=== PATIENT | female | born 1965 | race African-American/Black ===

== ENCOUNTER 2025-10-18 14:38 | Outpatient (AMB) | payer OTHER, SELFPAY ==
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
[2025-10-18 14:48] VITALS: BP 122/80; PULSE 63; RESP 16; TEMP 36.2; O2SAT 97; BMI 32.4
--- OUTSIDE RECORDS SUMMARY | 2025-10-18 16:03 | XMS_ITS | Clinical Summary ---
Author Organization [facility] Prior to 03/30/[address] [place] [address] Care Team Providers Care Blocker Metal Base Name Role Phone Suni Ojeda MD Primary Care Provider [phone]- [phone] Allergies Active Allergy Reactions Criticality Noted Date Comments Ceftriaxone 03/04/2024 Other reaction(s): BRADYCARDIA, CHEST PAIN Morphine 03/04/2024 Other reaction(s): Chest tightness Medications Medication Sig Dispensed Refills Start Date End Date Status ondansetron (ZOFRAN-ODT) 8 MG disintegrating tablet Take 1 tablet (8 mg total) by mouth every 8 (eight) hours as needed for nausea. 20 tablet 0 03/04/2024 Active Melatonin 10 MG TABS Take 10 mg by mouth every evening as needed. 0 02/09/2024 Active meclizine (ANTIVERT) 25 MG tablet Take 1 tablet (25 mg total) by mouth 3 (three) times a day as needed for dizziness. 30 tablet 0 03/05/2024 Active Active Problems Problem Noted Date Diagnosed Date Syncope and collapse 03/04/2024 Syncope 03/04/2024 Social History Tobacco Use Types Packs/Day Years Used Date Smoking Tobacco: Never Smokeless Tobacco: Never Alcohol Use Standard Drinks/Week Comments No 0 (1 standard drink = 0.6 oz pur e alcohol) Sex and Gender Information Value Date Recorded Sex Assigned at Female 03/04/2024 4:14 AM EDT Gender Identity Not on file Sexual Orientation Not on file Job Start Date Occupation Industry Not on file Not on file Not on file Last Filed Vital Signs Vital Sign Reading Time Taken Comments Blood Pressure 118/57 03/05/2024 10:51 AM EDT Pulse 60 03/05/2024 10:51 AM EDT Temperature 36.7 C (98.1 F) 03/05/2024 10:51 AM EDT Respiratory Rate 18 03/05/2024 10:51 AM EDT Oxygen Saturation 98% 03/05/2024 10:51 AM EDT Inhaled Oxygen Concentration - - Weight 97.1 kg (214 lb) 03/04/2024 4:17 AM EDT Height 157.5 cm (5' 2 ) 03/04/2024 4:17 AM EDT Body Mass Index 39.14 03/04/2024 4:17 AM EDT Plan of Treatment Health Maintenance Due Date Last Done Comments Hepatitis C Screening 1965 COVID-19 Vaccine (#1) 06/09/1964 Depression Screening 1975 Preventative Health Evaluation 1981 DTap / Tdap / Td (1 - Tdap) 1982 Cervical Cancer Screening (Pap Smear) 1984 Colon Cancer Screening (Colonoscopy) 2008 Breast Cancer Screening (Mammogram) 2013 Shingrix-Zoster Vaccine (1 o f 2) 2013 Influenza Vaccine (#1) 2025 3, 10/22/2016 RSV Adult > 60+ Yrs or (1 - 1-dose 75+ series) 2038 Hepatitis B Vaccines Completed 06/16/2004, 12/30/2003, 11/29/2003 Pneumococcal Vaccine Aged Out No long er eligible based on patient's age to complete this topic RSV Ped < 20 months Aged Out No longe r eligible based on patient's age to complete this topic Advance Directives For more information, please contact: [phone] Latest Code Status on File Code Status Date Activated Date Inactivated Comments Full Code 03/04/2024 10:52 AM 03/05/2024 5:29 PM This c ode status was ascertained in the following way: discussion with patient . Care Teams Blocker Metal Base Relationship Specialty Start Date End Date Suni Ojeda MD [address] [place] [address] PCP - General Internal Medicine 07/17/18
--- OUTSIDE RECORDS SUMMARY | 2025-10-18 16:03 | XMS_ITS | Clinical Summary ---
Author Organization [facility] Address [address] [place] [address] Care Team Providers Care Jinrikisha Driver Name Role Phone Suni Ojeda MD Primary Care Provider +1- [phone] Surgical History Surgery Date Site/Laterality Comments NO PAST SURGERIES PROCEDURE:NO PAST SURGERIES Medical History Medical History Date Comments Hypertension DX:Hypertension Social History Tobacco Use Types Packs/Day Years Used Date Smoking Tobacco: Never Smokeless Tobacco: Never Alcohol Use Standard Drinks/Week Comments No 0 (1 standard drink = 0.6 oz pur e alcohol) Comments Unknown Sex and Gender Information Value Date Recorded Sex Assigned at Not on file Legal Sex Female 11:16 AM EST Gender Identity Not on file Sexual Orientation Not on file Plan of Treatment Health Maintenance Due Date Last Done Comments Breast Cancer Screening 1963 DTaP,Tdap,and Td Vaccines (1 - Tdap) 1982 Cervical Cancer Screening: P ap Smear 1984 Pneumococcal Vaccine: 50+ Years (1 of 1 - PCV) 2013 Zoster Vaccines (1 of 2) 2013 HIV Screening 09/28/2022 Hepatitis C Screening 09/28/2022 Social Influencers of Health Screening 09/28/2022 Depression Screening 10/31/2024 Colorectal Cancer Screening: Stool Based Tests (FOBT/FIT) 03/04/2025 03/04/2024 COVID-19 Vaccine ( - 2024-2 6 season) 2025 Influenza Vaccine (#1) 2025 RSV Immunization Adult Patients (1 - 1-dose 75+ series) 2038 Hepatitis B Vaccines Completed 06/16/2004, 12/30/2003, 11/29/2003 HIB Vaccines Aged Out No longer eligi ble based on patient's age to complete this topic HPV Vaccines Aged Out No longer eligi ble based on patient's age to complete this topic Hepatitis A Vaccines Aged Out No long er eligible based on patient's age to complete this topic IPV Vaccines Aged Out No longer eligi ble based on patient's age to complete this topic MMR Vaccines Aged Out No longer eligi ble based on patient's age to complete this topic Meningococcal ACWY Vaccine Aged Out N o longer eligible based on patient's age to complete this topic Meningococcal B Vaccine Aged Out No l onger eligible based on patient's age to complete this topic RSV Immunization Patients Under 20 months Aged Out No longer eligible b ased on patient's age to complete this topic Varicella Vaccines Aged Out No longer eligible based on patient's age to complete this topic Care Teams Jinrikisha Driver Relationship Specialty Start Date End Date Suni Ojeda MD [address] [place] [address] PCP - General Internal Medicine 09/09/20
--- OUTSIDE RECORDS SUMMARY | 2025-10-18 16:03 | XMS_ITS ---
Author Name [facility] Organization Unknown History of Medication Use Medication Directions Dispensed Refills Start Date End Date Stat melatonin 3 MG tablet 9 mg 9 mg, Oral, Every Night at Bedtime, First dose on Tue03/05/24 at 2200 03/06/2024 active meclizine (ANTIVERT) 25 MG tablet Take 1 tablet (25 mg total) by mouth 3 (three) times a day as needed for dizziness. 03/05/2024 active metoclopramide (REGLAN) injection 10 mg 10 mg, Intravenous, Every 6 hours PRN, nausea, vomiting, Starting on Tue03/05/24 at 1020 03/05/2024 active iopamidol (ISOVUE-370) 76 % injection 100 mL 100 mL, Intravenous, IMG once as needed, contrast, Starting on Tue03/04/24 at 0549, For 1 dose, Radiology ContrastLot #: [id number] xpiration Date: 08/04/2026 03/04/2024 4 completed ketorolac (TORADOL) injection 15 mg 15 mg, Intravenous, Once, On Tue03/04/24 at 0445, For 1 dose 03/04/2024 4 completed meclizine (ANTIVERT) tablet 25 mg 25 mg, Oral, 3 times daily PRN, dizziness, Starting on Tue03/05/24 at 0747 03/04/2024 4 active ondansetron (ZOFRAN) injection 4 mg 4 mg, Intravenous, Once, On Tue03/04/24 at 0445, For 1 doseIV push over 2 to 5 minutes. 03/04/2024 4 completed sodium chloride 0.9% bolus (NS) 1,000 mL 1,000 mL, Intravenous, at 1,000 mL/hr, Once, On 03/04/24 at 0445, For 1 dose 03/04/2024 4 completed sodium chloride 0.9% bolus (NS) 500 mL 500 mL, Intravenous, at 500 mL/hr, Once, On 03/04/24 at 0715, For 1 dose 03/04/2024 4 completed acetaminophen (TYLENOL) tablet 650 mg 650 mg, Oral, Every 6 hours PRN, mild pain (1-3), Starting on Tue03/04/24 at 1052 03/04/2024 active butalbital-acetamino phen-caffeine per tablet 1 tablet 1 tablet, Oral, Every 4 hours PRN, headaches, Starting on Tue03/04/24 at 1338, For 6 dosesMaximum Dose = 6 capsules per day. 03/04/2024 active enoxaparin (LOVENOX) syringe 40 mg 40 mg, Subcutaneous, Every 24 hours, First dose on Tue03/04/24 at 1100Enoxaparin NOT recommended if CrCl<30 Administer in abdomen (at least 2 inches from navel) 03/04/2024 active lactated ringers infusion 125 mL/hr, Intravenous, Continuous, Starting on Tue03/04/24 at 1100 03/04/2024 active ondansetron (ZOFRAN-ODT) 8 MG disintegrating tablet Take 1 tablet (8 mg total) by mouth every 8 (eight) hours as needed for nausea. 03/04/2024 active Melatonin 10 MG TABS Take 10 mg by mouth every evening as needed. 02/09/2024 active Allergies Allergen Reaction Severity Comment Documented Date Source Statu s MORPHINE Other reaction( s): Chest tightness 03/04/2024 [facility] active CEFTRIAXONE Other reaction( s): BRADYCARDIA, CHEST PAIN [facility] Problems Problem Status Onset Date Problem Type Date of Resolution Source Syncope active 2024-03-04 ProblemAct [facility] Viral gastroenteritis active EncounterDiagnosis Act [facility] Vertigo active EncounterDiagnosisAct [facility] Vomiting active EncounterDiagnosisAct [facility] Encounters Encounter Type Encounter Reason Primary Diagnosis Location Date Inpatient Syncope and collapse Syncope and collapse [facility] 03/04/2024 Care Team Organization Name Specialty Phone Email Start Date End Perez baer [facility] 03/04/2024 [facility] Primary [facility] 0 03/04/2024
== END 2025-10-18 15:47 | disposition home or self-care (01) ==
LOC: HO.HMCHD 14:39
PROVIDERS: PCP Internal Medicine; Visit Provider Internal Medicine
DX: Z00.00 Encounter for general adult medical examination without abnormal findings (principal); D50.9 Iron deficiency anemia, unspecified; I10 Essential (primary) hypertension

== ENCOUNTER 2025-10-18 14:38 | Outpatient (REF) | payer OTHER, SELFPAY ==
--- NOTE | ~2025-10-18 | XR_ITS ---
EXAMINATION: XR HIP, LEFT CLINICAL INFORMATION: M25.552 - Pain in left hip COMPARISON: None available. TECHNIQUE: Two views of the left hip. FINDINGS: No fracture. Alignment is anatomic. Hip joint space is maintained. Soft tissues are unremarkable. XR/XR hip LT w PEL1V IMPRESSION: Unremarkable left hip exam. Electronically signed by: Jay Batista MD 10/18/2025 04:43 PM EST
== END 2025-10-18 14:39 | disposition home or self-care (01) ==
LOC: HO.XRAY 14:38
PROVIDERS: PCP Internal Medicine; Visit Provider Internal Medicine
DX: M25.552 Pain in left hip (principal); I10 Essential (primary) hypertension; D50.9 Iron deficiency anemia, unspecified
CPT/HCPCS: 73502; 96127

== ENCOUNTER → 2025-10-18 15:57 | Outpatient (BNV) | payer OTHER, SELFPAY | PROVIDERS: PCP Internal Medicine; Visit Provider Radiology Diagnostic Radiology | DX: M25.552 Pain in left hip (principal) | CPT/HCPCS: 73502 ==

== ENCOUNTER 2025-10-21 10:20 | Outpatient (REF) | payer OTHER, SELFPAY ==
--- OUTSIDE RECORDS SUMMARY | 2025-10-21 12:37 | XMS_ITS | Clinical Summary ---
Author Organization [facility] Prior to 03/30/[address] [place] [address] Care Team Providers Care House Mover Name Role Phone Suni Ojeda MD Primary Care Provider +1- [phone] Allergies Active Allergy Reactions Criticality Noted Date [...] Advance Directives For more information, please contact: [phone] Latest Code Status on File Code Status Date Activated Date Inactivated Comments Full Code 03/04/2024 10:52 AM 03/05/2024 5:29 PM This c ode status was ascertained in the following way: discussion with patient . Care Teams House Mover Relationship Specialty Start Date End Date Suni Ojeda MD [address] [place] [address] PCP - General Internal Medicine 07/17/18
--- OUTSIDE RECORDS SUMMARY | 2025-10-21 12:37 | XMS_ITS | Clinical Summary ---
Author Organization [facility] Address [address] [place] [address] Care Team Providers Care Roof Mechanic Name Role Phone Suni Ojeda MD Primary Care Provider +1- [phone] Surgical History Surgery Date Site/Laterality Comments NO [...] age to complete this topic Care Teams Roof Mechanic Relationship Specialty Start Date End Date Suni Ojeda MD [address] [place] [address] PCP - General Internal Medicine 09/09/20
[2025-10-21 13:55] LABS: MANUAL DIFF FLAG NO
[2025-10-21 14:16] LABS: Hematocrit 40.5 % (37.0-47.0); Hemoglobin 14.0 g/dl (12.0-16.0); Imm Gran Abs Auto 0.00 X10*3/uL (0.00-0.03); Imm Gran Pct Auto 0.0 % (0.0-0.4); Lymphocytes Absolute Auto 2.2 X10*3/uL (1.2-4.9); Mean Corpuscular HGB Conc 34.6 g/dl (31.0-35.0); Mean Corpuscular Hemoglobin 28.2 pg (27.0-33.0); Mean Corpuscular Volume 81.5 fL (80.0-98.0); NRBC Abs Auto 0.000 X10*3/uL (0.0-0.012); NRBC Pct Auto 0.0 /100WBC (0.0-0.2); Platelet Count 301 X10*3/uL (160-400); Red Blood Count 4.97 X10*6/uL (4.20-5.50); White Blood Count 4.1 X10*3/uL (4.8-10.8)
[2025-10-21 14:46] LABS: Microalbum/Creatinine Ratio Ur 8.0 ug/mg cr (<30)
[2025-10-21 15:18] LABS: Folate 5.0 ng/mL (> or = 4.0); Vitamin B12 428 pg/mL (200-900)
[2025-10-21 16:22] LABS: Alanine Aminotransferase 10 U/L (0-31); Albumin Level 4.4 g/dL (3.5-5.0); Alkaline Phosphatase 66 U/L (39-117); Anion Gap 10 (12-20); Aspartate Amino Transferase 22 U/L (5-31); Blood Urea Nitrogen 7 mg/dL (9-16); Calcium 10.0 mg/dL (8.4-10.2); Carbon Dioxide 27 mmol/L (22-29); Chloride 108 mmol/L (96-108); Cholesterol 215 mg/dL (<200); Estimated Glomerular Filt Rate > 60; HDL Cholesterol 78 mg/dL (>40); Iron 115 mcg/dL (30-160); Magnesium 2.1 mg/dL (1.6-2.6); Percent Iron Saturation 48 % (15-50); Potassium 4.3 mmol/L (3.3-5.1); Sodium 141 mmol/L (135-145); Total Iron Binding Capacity 239 mcg/dL (228-428); Total Protein 7.2 g/dL (6.5-8.0); Triglycerides 53 mg/dL (<150); Unsaturated Iron Binding 124 ug/dL
[2025-10-21 16:25] LABS: Ferritin 84 ng/mL (10-250)
== END 2025-10-21 10:21 | disposition home or self-care (01) ==
LOC: HO.HKASLDS 10:20
PROVIDERS: PCP Internal Medicine; Visit Provider Internal Medicine
DX: I10 Essential (primary) hypertension (principal); E53.8 Deficiency of other specified B group vitamins; E55.9 Vitamin D deficiency, unspecified; D50.9 Iron deficiency anemia, unspecified
CPT/HCPCS: 36415; 80053; 80061; 82043; 82306; 82570; 82607; 82728; 82746; 83036; 83540; 83735; 84443; 85025